=== PATIENT | female | born 1975 | race Caucasian/White ===

== ENCOUNTER 2017-09-29 00:23 | Emergency (ER) | payer OTHER ==
[~2017-09-29] VITALS: Ht 157.5 cm; Wt 77.6 kg
[2017-09-29 00:29] VITALS: Ht 157.5 cm; Wt 77.6 kg
[2017-09-29 02:50] VITALS: BP 134/82
== END 2017-09-29 02:50 | disposition home or self-care (01) ==
LOC: ED 00:23
DX: S16.1XXA Strain of muscle, fascia and tendon at neck level, initial encounter (principal); X58.XXXA Exposure to other specified factors, initial encounter; Y93.89 Activity, other specified; Y92.89 Other specified places as the place of occurrence of the external cause; Y99.8 Other external cause status
CPT/HCPCS: J1885